=== PATIENT | female | born 1990 | race Caucasian/White ===

== ENCOUNTER 2020-05-07 15:54 | Inpatient (IN) | payer OTHER, SELFPAY ==
[2020-05-07 16:30] VITALS: BP 107/63; PULSE 99
--- NOTE | 2020-05-07 17:02 | LDADM ---
This patient, Layla James, was admitted to OB Post 117 on 05/07/20 at 15:54. Plans for repeat section, pain management and were discussed with patient. Patient/family oriented to hospital policies and general routines including ID bracelet, bed and alarms, visiting hours, pain management, procedures, bathroom and other care routines, personal items, smoking policy, room service/diet and guest tray routines, security routines, and visiting hours. Patient/Family are encouraged to report perceived risks to care and to ask questions if they do not understand what they are told or what they should do. See OBIX for further documentation.
[2020-05-07 17:20] LABS: Basophils Percent Auto 0.2 % (0.2-1.2); Eosinophils Absolute Auto 0.1 K/mm3 (0-0.3); Eosinophils Percent Auto 0.9 % (0-4.4); Hematocrit 37.7 % (37.0-47.0); Hemoglobin 12.3 g/dL (12.0-15.0); Immature Granulocyte Absolute 0.23 K/mm3 (0.00-0.031); Immature Granulocyte Percent A 1.8 % (0-0.5); Lymphocytes Absolute Auto 1.97 K/mm3 (0.9-3.2); Lymphocytes Percent Auto 15.3 % (18.3-44.2); Mean Corpuscular HGB Conc 32.6 g/dl (32-36); Mean Corpuscular Hemoglobin 29.2 pg (26-34); Mean Corpuscular Volume 89.5 fl (80-100); Mean Platelet Volume 10.5 fl (7.4-10.4); Monocytes Absolute Auto 0.8 K/mm3 (0.1-0.6); Monocytes Percent Auto 6.2 % (2.6-8.5); Neutrophils Absolute Auto 9.8 K/mm3 (1.3-6.7); Neutrophils Percent Auto 75.6 % (45.5-73.1); Platelet Count Result 218 k/mm3 (150-375); Red Blood Count 4.21 M/mm3 (4.2-5.4); Red Cell Distribution Width 13.2 % (11.5-14.5); White Blood Count 12.9 K/mm3 (4.5-10.0)
[2020-05-07 17:58] LABS: Alanine Aminotransferase 12 U/L (4-35); Albumin Level 3.2 g/dL (3.5-5.1); Alkaline Phosphatase 213 U/L (38-126); Aspartate Amino Transferase 22 U/L (14-36); Bilirubin,Total 0.2 mg/dL (0.2-1.3)
[2020-05-07 17:59] LABS: Barbiturate Screen Urine Negative (Negative); Benzodiazepines Screen Urine Negative (Negative)
[2020-05-07 18:11] LABS: Cannabinoid Screen Urine Positive (Negative); Cocaine Screen Urine Negative (Negative); Methadone Screen Urine Negative (Negative); Opiate Screen Urine Negative (Negative); Phencyclidine Screen Urine Negative (Negative)
[2020-05-07 18:35] LABS: Amphetamine Screen Urine Positive (Negative)
[2020-05-07 18:39] LABS: HIV 1/2 Ab P24 Ag Result Negative (Negative)
[2020-05-07 18:55] LABS: Hepatitis B Surface Antigen Negative (Negative)
[2020-05-08] VITALS (67 sets, daily range): BP systolic 80–117; BP diastolic 49–78; PULSE 44–125; RESP 14–18; TEMP 36.3–36.9; O2SAT 94–100
--- NOTE | 2020-05-08 03:18 | WPDANESEPPF ---
Anes - Initial Pre Proc Eval Procedure: Operation Date: 05/08/20 07:30 Proposed Procedures p Repeat Section - Leah Bateman MD Date/Time: 05/08/20 03:18 Surgeon: Gloria Smart MD Pre Op Diagnosis: C/S Patient Data Age: 29 Gender: F Height: 1.68 m Weight: 92 kg Last Vital Signs Temp 36.4 C L 05/08/20 00:52 Pulse 67 05/08/20 00:37 BP 106/64 05/08/20 00:37 Allergies Allergy/AdvReac Type Severity Reaction Status Date / Time No Known Allergies Allergy Unverified 03/21/18 12:35 Home Medications Medication Instructions Recorded Confirmed Type No Home Medications 04/24/20 05/07/20 History Laboratory Tests 05/07/20 05/07/20 05/07/20 17:00 17:00 17:00 WBC 12.9 K/mm3 H K/mm3 (4.5-10.0) RBC 4.21 M/mm3 M/mm3 (4.2-5.4) Hgb 12.3 g/dL g/dL (12.0-15.0) Hct 37.7 % % (37.0-47.0) MCV 89.5 fl fl (80-100) MCH 29.2 pg pg (26-34) MCHC 32.6 g/dl g/dl (32-36) RDW 13.2 % % (11.5-14.5) Plt Count 218 k/mm3 k/mm3 (150-375) MPV 10.5 fl H fl (7.4-10.4) Immature Gran % (Auto) 1.8 % H % (0-0.5) Neut % (Auto) 75.6 % H % (45.5-73.1) Lymph % (Auto) 15.3 % L % (18.3-44.2) [place] % (Auto) 6.2 % % (2.6-8.5) Eos % (Auto) 0.9 % % (0-4.4) Baso % (Auto) 0.2 % % (0.2-1.2) Lymph # (Auto) 1.97 K/mm3 K/mm3 (0.9-3.2) [place] # (Auto) 0.8 K/mm3 H K/mm3 (0.1-0.6) Eos # (Auto) 0.1 K/mm3 K/mm3 (0-0.3) Baso # (Auto) 0.0 K/mm3 K/mm3 (0.0-0.1) Abs Immat Gran (auto) 0.23 K/mm3 H K/mm3 (0.00-0.031) Absolute Neuts (auto) 9.8 K/mm3 H K/mm3 (1.3-6.7) Absolute Nucleated RBC 0.0 K/mm3 K/mm3 (0.0-0.012) Nucleated RBC % 0.0 % % (0.0-0.2) Total Bilirubin Direct Bilirubin AST ALT Alkaline Phosphatase Total Protein Albumin Urine Opiates Screen Urine Methadone Screen Ur Barbiturates Screen Ur Phencyclidine Scrn Ur Amphetamine Screen U Benzodiazepines Scrn Urine Cocaine Screen U Cannabinoids Screen RPR Pending C.trachomatis RNA (TMA) Hep Bs Antigen HIV 1&2 Ab/P24 Ag 4thGn N.gonorrhoeae RNA (TMA) Trichomonas Direct ID Blood Type O Positive Antibody Screen Negative 05/07/20 05/07/20 05/07/20 17:00 17:00 17:00 WBC RBC Hgb Hct MCV MCH MCHC RDW Plt Count MPV Immature Gran % (Auto) Neut % (Auto) Lymph % (Auto) [place] % (Auto) Eos % (Auto) Baso % (Auto) Lymph # (Auto) [place] # (Auto) Eos # (Auto) Baso # (Auto) Abs Immat Gran (auto) Absolute Neuts (auto) Absolute Nucleated RBC Nucleated RBC % Total Bilirubin 0.2 mg/dL mg/dL (0.2-1.3) Direct Bilirubin 0.0 mg/dL mg/dL (0-0.3) AST 22 U/L U/L (14-36) ALT 12 U/L U/L (4-35) Alkaline Phosphatase 213 U/L H U/L (38-126) Total Protein 6.0 g/dL L g/dL (6.3-8.2) Albumin 3.2 g/dL L g/dL (3.5-5.1) Urine Opiates Screen Negative (Negative) Urine Methadone Screen Negative (Negative) Ur Barbiturates Screen Negative (Negative) Ur Phencyclidine Scrn Negative (Negative) Ur Amphetamine Screen Positive (Negative) U Benzodiazepines Scrn Negative (Negative) Urine Cocaine Screen Negative (Negative)
[2020-05-08] MEDS: LACTATED RINGERS 1,000 ML 125 ML IV CONT ×2 (06:25→07:13)
[2020-05-08 06:41] LABS: Rapid Plasma Reagin Non-Reactive (NonReactive)
--- NOTE | 2020-05-08 07:13 | WPDOBADMIT ---
Obstetrics - Admit Note Admission Note: Layla presented for her repeat CS because today is her due date. record reviewed. Significant for very minimal care- last seen in Feb for US only, she left before seeing MD. She had only one visit with a provider in October. She has no showed more than 6 visits. She states she has no transportation for visits. Anatomy US was done, but cranial structures incomplete and HC was 8%. She did pass her 1hr glucose, as she had GDM last . Last term CS, she wants repeat. UDS on admission pos for MJ and amphetamines. She admits to MJ use. She denies use of any OTC or prescription medications and denies use of prescription or illicit amphetamines. She has no idea how she was positive for those. We discussed that she has not taken good care of this baby during this and that SW will see her post delivery, and that DFS involvement is likely. No GBS done.. HIV and Hep neg. GC CT pending. We discussed RBA of repeat CS including but not limited to risks of bleeding, infection, injury to nearby organs, injury to baby. Pt consented. Will proceed with R CS this am.
[2020-05-08] MEDS: ceFAZolin 2 GM/D5W 50 ML 2 GM/50 ML BAG IVPB (07:26)
--- NOTE | 2020-05-08 08:28 | PM.OBPRVD ---
OB - Delivery Note Procedure Delivery date: 05/08/20 Procedure: Procedures Repeat Section Operation Date: 05/08/20 07:30 <No data on this case meets the specified criteria> events: No Care (one visit) and Previous Intrapartal events: None Route of delivery: Specimen: Yes (placenta) Anesthesia type: Spinal Disposition: floor Complications: none Narrative: The patient was taken to the OR and received spinal anesthesia. She was placed in dorsal supine position with left lateral tilt. SCDs and castillo were placed. She was prepped and draped in the normal sterile fashion. A Pfannensteil skin incision was made and carried through to the underlying layer of fascia. The fascia was incised in the midline and then extended laterally using Guerra scissors. The muscles were in the midline and the peritoneum was entered bluntly. The peritoneal incision was extended inferiorly and superiorly with care to avoid the bladder. The bladder blade was then inserted, the vesicouterine peritoneum was grasped, incised with Metzenbaum scissors, and a bladder flap created. The bladder blade was reinserted. A low transverse uterine incision was made with a scalpel and extended bluntly. AROM was performed and fluid was noted to be clear. The head was delivered, followed by the remainder of the baby. The baby's oropharynx was suctioned. After 30 seconds, the cord was clamped and cut and the was handed off. Cord blood was obtained and the placenta was then removed manually. The uterus was exteriorized. A moist lap sponge was used to curette the endometrium. The uterine incision was then closed with one layer of 0-Vicryl in a running, locking fashion. Good hemostasis was noted. The posterior cul de sac was irrigated with normal saline and cleared of all clot and debris. The uterus was returned to the abdomen. Both lateral gutters were then irrigated. The rectus muscles were inspected and found to be hemostatic. The fascia was reapproximated using 0-Vicryl in running fashion. The subcutaneous tissue was irrigated with normal saline and made hemostatic with Bovie electrocautery. The subcutaneous tissue was reapproximated with a layer of running 2-0 plain gut. The skin was then closed with 4-0 Vicryl in a subcuticular fashion. Steri strips and a bandage were applied. The uterus was evacuated. The patient tolerated the procedure very well. All counts were correct. She was taken to the recovery room in good condition. Baby Date of : 05/08/20 Time of : 07:56 Weeks of gestation at delivery: 40 Infant gender: Female Weight (pounds): 7 Weight (ounces): 13 presentation: vertex Placenta delivery description: Manual Removal cord vessel description: 3 Vessels, True Knot and Delayed Cord Clamping score one minute: 9 score five minutes: 9
--- NOTE | 2020-05-08 08:46 | P.OP_ITS ---
Procedure Note - Detailed Date of procedure: 05/08/20 Pre-op diagnosis: C/S prior CS Post-op diagnosis: same Procedure performed: Repeat LTCS Description of procedure: see delivery note Implants: none Anesthesia: spinal Surgeon: Leah Bateman MD Automotive Detailer: see delivery record Estimated blood loss (mL): 460 Drains: No Packing: No Pathology: yes Complications: No immediate complications Condition: stable Disposition: floor
[2020-05-08] MEDS: OXYTOCIN 30 UNITS/NS 500 ML 30 UNITS/500 ML BAG 125 UNITS IV CONT (10:18)
[2020-05-08] MEDS: diphenhydrAMINE HCl INJ 50 MG/ML VIAL 12.5 MG IV PUSH (11:35)
--- NOTE | 2020-05-08 12:02 | OBPPTRN ---
1044 Patient transferred to post room #282 via Stretcher. Support person present. Oriented to unit, room, information board, rooming in, admission packet and security measures. Patient verbalizes understanding.
[2020-05-08] MEDS: DEXTROSE 5%/0.45% SOD CHL 1,000 ML 125 ML IV CONT (14:32)
--- NOTE | 2020-05-08 15:00 | PCCCNOTE ---
Addendum entered by GAYLE Villasenor 05/10/20 10:46: Received call today from [facility] worker Audie @ [phone]. Per Audie he states pt. and baby can be discharged home today. Pt. and FOB are already aware that they will need to complete a drug screen today through [facility]. Spoke with ANA CRISTINA Sheldon who is aware. Original Note: SS consult. Pt. positive for THC and amphetamines. Baby is also positive for THC and negative for amphetamines. Pt. confirms recreational THC use daily. She denies using any other drugs or medications that would cause the positive result of amphetamines. She states maybe the THC had something in it . She did not participate with care. She came to 1 visit and did have ultrasound. She indicates not having a vehicle to transport herself. She states that her mother provides her transportation and was unable to get her to appointments. She indicates not wanting to use public transportation due to COVID precautions. She has a 2 year old child at home. Herself and children live with her sister, Eloise James. She states that the Father of Baby, Paul Swanson, is involved and supportive. She also states that her mother, aunt and grandmother are supportive. She denies any other [facility] involvement. She states being current with WIC. She plans for her mother to transport herself and baby home when discharged. Provided resources. Reported pt. situation to [facility] ([phone]) and an investigation is being initiated. Spoke to [facility] worker from [place], Audie at [phone] and he plans to visit pt. this afternoon. Pt. and nursing notified.
--- NOTE | 2020-05-08 16:16 | PC.NURSE ---
[id number] Mirza Ryan a [employer]ian Blind Worker from [facility] here to visit with pt.
[2020-05-08] MEDS: IBUPROFEN 600 MG TABLET PO (16:49)
[2020-05-08] MEDS: ONDANSETRON INJ 4 MG/2 ML VIAL IV PUSH (17:38)
--- NOTE | 2020-05-08 21:26 | PC.NURSE ---
Patient viewed the discharge video Mother & Baby Care, The First Two Weeks . Patient was given the opportunity and encouraged to ask questions. Patient verbalized understanding of information shared and has been given the mother/baby guide for home reference.
[2020-05-09 04:30] VITALS: BP 97/52; PULSE 69; RESP 14; TEMP 36.6; O2SAT 99
[2020-05-09] MEDS: IBUPROFEN 600 MG TABLET PO ×2 (04:46→16:48)
[2020-05-09] MEDS: HYDROcodone/acetaminophen (*CRX) 5-325 MG TABLET 1 TAB PO ×4 (04:46→20:04)
[2020-05-09 05:41] LABS: Basophils Percent Auto 0.3 % (0.2-1.2); Eosinophils Absolute Auto 0.1 K/mm3 (0-0.3); Eosinophils Percent Auto 0.8 % (0-4.4); Hematocrit 32.2 % (37.0-47.0); Hemoglobin 10.5 g/dL (12.0-15.0); Immature Granulocyte Absolute 0.22 K/mm3 (0.00-0.031); Immature Granulocyte Percent A 1.7 % (0-0.5); Lymphocytes Absolute Auto 1.75 K/mm3 (0.9-3.2); Lymphocytes Percent Auto 13.5 % (18.3-44.2); Mean Corpuscular HGB Conc 32.6 g/dl (32-36); Mean Corpuscular Hemoglobin 28.8 pg (26-34); Mean Corpuscular Volume 88.5 fl (80-100); Monocytes Percent Auto 7.3 % (2.6-8.5); Neutrophils Absolute Auto 9.9 K/mm3 (1.3-6.7); Neutrophils Percent Auto 76.4 % (45.5-73.1); Platelet Count Result 193 k/mm3 (150-375); Red Blood Count 3.64 M/mm3 (4.2-5.4); Red Cell Distribution Width 13.2 % (11.5-14.5)
[2020-05-09 08:00] VITALS: BP 101/61; PULSE 55; RESP 16; TEMP 36.1; O2SAT 100
--- NOTE | 2020-05-09 08:00 | PM.OBPNVD ---
OB - PN: Subj Subjective Date/time seen: 05/09/20 08:00 Patient comments: no complaints, pain well controlled, tolerating diet and flatus present OB - PN: Obj Data Labs CBC & Chem 7: 05/09/20 04:40 Labs: Laboratory Results - last 24 hr 05/09/20 04:40 WBC 13.0 H RBC 3.64 L Hgb 10.5 L Hct 32.2 L MCV 88.5 MCH 28.8 MCHC 32.6 RDW 13.2 Plt Count 193 MPV 11.0 H Immature Gran % (Auto) 1.7 H Neut % (Auto) 76.4 H Lymph % (Auto) 13.5 L [place] % (Auto) 7.3 Eos % (Auto) 0.8 Baso % (Auto) 0.3 Lymph # (Auto) 1.75 [place] # (Auto) 1.0 H Eos # (Auto) 0.1 Baso # (Auto) 0.0 Abs Immat Gran (auto) 0.22 H Absolute Neuts (auto) 9.9 H Absolute Nucleated RBC 0.0 Nucleated RBC % 0.0 OB - PN A/P Plan day: 1 Comments: Post Op LTCS - no problems, routine recovery Time Spent With Patient Time: Total time spent is greater than 50% in coordination of care (as documented) at patient's floor/unit and/or counseling patient: Exam Const: General: cooperative, healthy appearing, comfortable and no acute distress Resp: Auscultation: no crackles, no rales, no rhonchi and no wheezes Cardio: Rhythm: regular rhythm Heart sounds: no click and no murmurs GI: Inspection: non-distended Auscultation: normal bowel sounds Extrem: General: normal to inspection, no pedal edema and no calf tenderness
--- NOTE | 2020-05-09 09:00 | WPDANLDNPN2 ---
Anes-Prog Note L&D-Neuraxial Date/Time: 05/09/20 09:00 Neuraxial medications: intrathecal PF morphine Opiod-related complaints: none Patient feedback: Patient satisfied with post-operative pain management.
--- NOTE | 2020-05-09 09:00 | WPDANLDPN2 ---
Anes-Prog Note L&D Date/Time: 05/09/20 09:00 Comfortable throughout: labor and delivery Neuraxial method: epidural Epidural/Spinal procedure site: clean & non-tender Neuro status: Neuro function grossly intact. Cardiovascular status: normal Respiratory status: normal Airway patency: baseline Mental status: baseline Post-Op hydration status: normal Vital Signs: Last Vital Signs Temp 36.6 C 05/09/20 04:30 Pulse 69 05/09/20 04:30 Resp 14 05/09/20 04:30 BP 97/52 L 05/09/20 04:30 Pulse Ox 99 05/09/20 04:30 Pain score (VAS): 0 I/O: Intake & Output 05/08/20 05/09/20 05/09/20 23:59 07:59 15:59 Intake Total 1080 Output Total 1328 1450 Balance -248 -1450 Post-procedural complaints: none Patient feedback: Patient satisfied with anesthetic care.
[2020-05-09] MEDS: DOCUSATE SODIUM 100 MG CAPSULE PO ×2 (09:20→16:47)
[2020-05-09] MEDS: MULTIVIT/MIN/PREN/FOL AC/IRON TABLET 1 TAB PO (09:20)
[2020-05-09 19:50] VITALS: BP 94/57; PULSE 86; RESP 16; TEMP 36.7; O2SAT 99
[2020-05-10] MEDS: HYDROcodone/acetaminophen (*CRX) 5-325 MG TABLET 1 TAB PO (05:23)
[2020-05-10] MEDS: IBUPROFEN 600 MG TABLET PO (05:23)
[2020-05-10 07:30] VITALS: BP 113/72; PULSE 70; RESP 18; TEMP 37.6; O2SAT 98
--- NOTE | 2020-05-10 07:32 | PM.OBPNVD ---
OB - PN: Subj Subjective Date/time seen: 05/10/20 07:32 Patient comments: no complaints baby status: doing well and bottle feeding well Narrative: No complaints. Wants to go home today. DCFS was doing home visit yesterday. E/A/V. OB - PN: Obj Data Labs CBC & Chem 7: 05/09/20 04:40 OB - PN A/P Plan day: 2 Plan: routine care and discharge home Comments: Routine post op care. Home today if approved per DCFS. DC instructions given. Time Spent With Patient Time: Total time spent is greater than 50% in coordination of care (as documented) at patient's floor/unit and/or counseling patient: Time with patient: less than 15 minutes Exam Narrative: Exam Narrative: NAD abdomen soft, appropriately tender, incision CDI Extremities nontender with 1+ edema
--- NOTE | 2020-05-10 07:43 | P.DS_ITS ---
DS: Admitting Diagnosis Admitting Diagnosis Admitting Diagnosis: C/S DS: Discharge Diagnosis Discharge Diagnosis (1) delivery delivered: Code(s): O82 - Encounter for delivery without indication Status: Acute OB - DS: Summary OB Procedures : None OB Procedures Intrapartum: OB Procedures: : None Peripartum Data Delivery Method: Section Procedures: Procedures Operation Date: 05/08/20 07:30 Actual Procedures Side Surgeon p Section Bilateral Leah Bateman MD complications: none Status at Discharge Functional status at discharge: independent ambulation Overall status at discharge: patient is progressing back to baseline Time Spent with Patient Time attestation: Total time spent providing and/or coordinating discharge services: DS: Data Data Completed and Pending Pending studies at discharge: Pending at discharge 05/08/20 07:58 Surgical [PTH] Routine Discharge Plan Discharge Attending physician on discharge: Leah Bateman Discharging Clinician: Leah Bateman Anticipated Discharge Date/Time: 05/10/20 12:00 Patient Disposition: Home, Self-Care Activity: may shower, may drive after 2 weeks and pelvic rest Diet: as tolerated Discharge Instructions: FU 1 week Patient Instructions: Antibiotic Form Stand Alone Forms: General Discharge Information Follow-up/Referrals: Leah Bateman MD [Physician] - (1 week) Discharge Medications: New docusate sodium 100 mg Capsule 100 mg PO BID PRN (Reason: constipation) Qty: 60 RF: 0 hydrocodone-acetaminophen 5-325 mg Tablet 1 tablet PO Q4-5H PRN (Reason: Moderate Pain (4-6)) Qty: 30 RF: 0 ibuprofen 600 mg Tablet 600 mg PO Q6H PRN (Reason: Cramping) Qty: 60 RF: 0 No Action No Home Medications RF: 0 Date of admission: 05/07/20 15:54 Primary Care Provider: PHYSICIAN,POWER SWEEPER OPERATOR Admitting Provider: Gloria Smart Attending physician on admission: Gloria Smart Condition: Stable
--- NOTE | 2020-05-10 08:09 | WPDANESPN ---
Anes - Prog Note Post-Op Date/Time: 05/10/20 08:09 Cardiovascular status: normal Respiratory status: normal Airway patency: baseline Mental status: baseline Post-Op hydration status: normal Vital Signs: Last Vital Signs Temp 36.7 C 05/09/20 19:50 Pulse 86 05/09/20 19:50 Resp 16 05/09/20 19:50 BP 94/57 L 05/09/20 19:50 Pulse Ox 99 05/09/20 19:50 Pain Score (VAS): 0 Laboratory Tests 05/09/20 04:40 Post-procedural complaints: none Patient Feedback: Patient satisfied with anesthetic care.
[2020-05-10] MEDS: MULTIVIT/MIN/PREN/FOL AC/IRON TABLET 1 TAB PO (09:05)
[2020-05-10] MEDS: DOCUSATE SODIUM 100 MG CAPSULE PO (09:06)
[2020-05-11 07:53] VITALS: BP 117/75; PULSE 73; RESP 20; TEMP 36.6; O2SAT 100
--- NOTE | 2020-05-15 07:49 | WPDHPUPDATE1 ---
History and Physical Update Update Date/Time: 05/15/20 07:49 Seen for FU on 05/13. Doing well. COuldn't get norco, will work on this from office. See H and P from delivery admission a few days ago. History and Physical has been reviewed, including an updated exam of the patient. There are NO changes in the patient's condition. Risks, benefits, and alternatives have been discussed and questions answered. Patient agrees to proceed with procedure.
== END 2020-05-10 11:30 | disposition home or self-care (01) | DRG 540 ==
LOC: ANHOBPP 16:44 → ANHOB2 05-08 14:07 → ANHOBPP 05-13 12:35
PROVIDERS: Admitting Provider Obstetrics & Gynecology; Visit Provider Obstetrics & Gynecology
PROC: 10D00Z1 Extraction of Products of Conception, Low, Open Approach (ICD-10-PCS; CPT 59514; principal; 2020-05-08 07:30)
DX: O34.211 Maternal care for low transverse scar from previous cesarean delivery (principal); O99.324 Drug use complicating childbirth; O99.334 Smoking (tobacco) complicating childbirth; F17.200 Nicotine dependence, unspecified, uncomplicated; F15.90 Other stimulant use, unspecified, uncomplicated; F12.90 Cannabis use, unspecified, uncomplicated; O69.2XX0 Labor and delivery complicated by other cord entanglement, with compression, not applicable or unspecified; Z3A.40 40 weeks gestation of pregnancy; Z37.0 Single live birth
CPT/HCPCS: 36415; 59025; 80076; 80307; 85025; 86592; 86703; 86850; 86900; 86901; 87081; 87340; 87491; 87591; 87808; 88307; A9270; G0432; J0131; J0690; J1200; J2274; J2405; J2590; J7120